=== PATIENT | female | born 1965 | race Caucasian/White ===

== ENCOUNTER 2017-11-04 13:22 | Emergency (ER) | payer BC, OTHER ==
[~2017-11-04] VITALS: Ht 157.5 cm; Wt 92.4 kg
[2017-11-04] MEDS ORDERED: IV NORMAL SALINE 1,000ML 1,000 ML IV SCH (13:45)
[2017-11-04 14:02] LABS: BASO # 0.1 x10^3/uL (0.0-0.2); BASO % 1 % (0-3); EOS # 0.2 x10^3/uL (0.0-0.7); EOS % 2 % (0-3); HEMATOCRIT 40.5 % (36.0-47.0); HEMOGLOBIN 13.7 g/dL (12.0-15.5); LYMPH # 2.8 x10^3/uL (1.0-4.8); LYMPH % 29 % (24-48); MEAN CORPUSCULAR HEMOGLOBIN 31 pg (25-35); MEAN CORPUSCULAR HGB CONC 34 g/dL (31-37); MEAN CORPUSCULAR VOLUME 93 fL (79-100); MONO # 0.7 x10^3/uL (0.0-1.1); MONO % 7 % (0-9); NEUT % 62 % (31-73); PLATELET COUNT 284 x10^3/uL (140-400); RED BLOOD COUNT 4.37 x10^6/uL (3.50-5.40); RED CELL DISTRIBUTION WIDTH 13.1 % (11.5-14.5); WHITE BLOOD COUNT 9.7 x10^3/uL (4.0-11.0)
--- NOTE | 2017-11-04 14:05 | EKG ---
[address] [address] Test Date: 2017-11-04 Test Time: 13:21:29 Pat Name: YOVANNY AHUJA Department: Room: Gender: F Director Government: [place] : 1965 Requested By: WAI JAY Order Number: [id number] Reading MD: Measurements Intervals [place] Rate: 82 P: 36 IL: 158 QRS: -10 QRSD: 82 T: 15 QT: 370 QTc: 435 Interpretive Statements SINUS RHYTHM LEFTWARD AXIS R-S TRANSITION ZONE IN V LEADS DISPLACED TO THE LEFT OTHERWISE NORMAL ECG RI6.01 No previous ECG available for comparison
[2017-11-04 14:18] LABS: ALBUMIN 3.8 g/dL (3.4-5.0); CALCIUM 9.5 mg/dL (8.5-10.1); CREATININE 1.1 mg/dL (0.6-1.0); DIRECT BILIRUBIN 0.1 mg/dL (0.0-0.2); POTASSIUM 4.1 mmol/L (3.5-5.1); TOTAL BILIRUBIN 0.3 mg/dL (0.2-1.0); TOTAL PROTEIN 7.5 g/dL (6.4-8.2)
--- NOTE | 2017-11-04 14:26 | RAD ---
CT HEAD WO CONTRAST dated 11/04/2017 2:04 PM Indication: Right arm numbness possible CVARight arm numbness. Pain when moving head. possible stroke/ right side weakness. Comparison: No comparison is available. Technique: Contiguous axial imaging the head was performed from skull base to vertex. No contrast administered. One or more of the following individualized dose reduction techniques were utilized for this examination: 1. Automated exposure control 2. Adjustment of the mA and/or kV according to patient size 3. Use of iterative reconstruction technique Findings: Ventricles and sulci are within normal limits for age. No midline shift or mass effect. Brain parenchyma is of normal attenuation. No hemorrhage or extra-axial collection. Posterior fossa and brainstem unremarkable. No hyperdense vessels are seen. Insular ribbons are symmetric. Visualized paranasal sinuses and mastoid air cells are clear. No apparent calvarial abnormality. IMPRESSION: 1. No evidence of acute intracranial hemorrhage or mass. 2. No CT evidence of acute CVA. If there is persistent clinical concern for evolving infarct, MRI could better evaluate Electronically signed by: Fermin Dahl MD (11/04/2017 2:23 PM) [facility]
[2017-11-04 14:49] LABS: AMPHETAMINE/METHAMPHETAMINE NEG (NEG); BARBITURATES NEG (NEG); BENZODIAZEPINES NEG (NEG); CANNABINOIDS NEG (NEG); COCAINE NEG (NEG); METHADONE NEG (NEG); OPIATES NEG (NEG); PHENCYCLIDINE NEG (NEG)
[2017-11-04 14:54] LABS: COLOR,URINE YELLOW
[2017-11-04 14:55] LABS: BILIRUBIN,URINE NEG (NEG); CLARITY,URINE CLEAR; GLUCOSE,URINE >=1000 mg/dL (NEG); NITRITE,URINE NEG (NEG); RBC,URINE 0 /HPF (0-2); UROBILINOGEN,URINE 0.2 mg/dL (0.2 mg/dL); WBC,URINE OCC /HPF (0-4)
[2017-11-04 14:56] LABS: BACTERIA,URINE FEW /HPF (0-FEW); HYALINE CASTS, URINE FEW /HPF; SQUAMOUS EPITHELIAL CELL,UR FEW /LPF
[2017-11-04] MEDS ORDERED: IOHEXOL 300 MG/ML 75 ML VIAL. IV ONE (15:00)
[2017-11-04] MEDS ORDERED: diphenhydrAMINE 50 MG/ML VIAL IVP ONE (15:15)
[2017-11-04] MEDS ORDERED: METOCLOPRAMIDE HCL 10 MG/2 ML VIAL. IV ONE (15:15)
--- NOTE | 2017-11-04 16:08 | RAD ---
CTA head and neck with contrast dated 11/04/2017. Comparison made to noncontrast head dated same day. CLINICAL INDICATION: Right arm numbness possible CVA. TECHNIQUE: Routine axial imaging the head and neck was performed following the intravenous administration of 100 cc Omnipaque 300. Study was performed as dedicated CTA with thin cut coronal and sagittal MIPS reconstructions. One or more of the following individualized dose reduction techniques were utilized for this examination: 1. Automated exposure control 2. Adjustment of the mA and/or kV according to patient size 3. Use of iterative reconstruction technique. Carotid Stenosis calculations for CT, MR, and conventional angiography are based upon measurements of the distal ICA diameter in accordance with the NASCET methodology. Stenosis calculations for carotid ultrasound studies are derived from validated velocity criteria which are known to correlate with the NASCET methodology. FINDINGS: Contrast bolus is adequate. Aortic arch is normal in caliber. Arch anatomy is standard. There is calcific plaque at the left subclavian artery origin, resulting in no significant stenosis. The bilateral subclavian arteries are otherwise patent. Vertebral arteries are not identified and likely congenitally absent or very hypoplastic. The bilateral common carotid artery origins are patent. Bilateral CCA are patent. There is mild calcific and soft plaque at the bilateral carotid bifurcations. Calcific and soft plaque on the left results in mild proximal ICA stenosis, estimated at about 40-50% narrowing. The left internal carotid artery is otherwise patent to the skull base. Mild calcific plaque at the right carotid bifurcation resulting in no significant proximal right ICA stenosis. 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 This vessel appears to be patent. The bilateral [employer] are patent. The distal right internal carotid artery is small but otherwise patent. Petrous and cavernous internal carotid arteries are not well evaluated due to venous contamination at the cavernous sinus. There is mild calcific plaque at the bilateral cavernous internal carotid arteries, without high-grade narrowing. Supraclinoid internal carotids and carotid termini are patent. Bilateral VALERIY and MCA branches are symmetric. No evidence of aneurysm. No apparent branch vessel occlusion, although the third and fourth order branches are poorly opacified and not well evaluated. Postcontrast imaging of the brain shows no abnormal enhancement. The dural venous sinuses are grossly patent. Paranasal sinuses are clear. No signal soft tissue abnormality. Limited images of the lung apices are clear. IMPRESSION: 1. Limited exam due to venous contamination. There is no evidence of hemodynamically significant stenosis or aneurysm. No apparent branch vessel occlusion. 2. 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 Please see above report for details. 3. Calcific plaque at the bilateral carotid bifurcation resulting in estimated 40-50% stenosis of the left ICA. No significant stenosis on the right. Electronically signed by: Fermin Dahl MD (11/04/2017 4:05 PM) [facility]
[2017-11-04] MEDS ORDERED: ASPIRIN 81 MG TAB.CHEW PO ONE (17:20)
--- NOTE | 2017-11-04 18:18 | PHYS DOC ---
Past History Past Medical History: Anxiety, Depression, Diabetes, Fibromyalgia, Hypertension Past Surgical History: Hysterectomy, Other Alcohol Use: Rarely Drug Use: None Adult General Chief Complaint Chief Complaint: NEURO SYMPTOMS/DEFICITS HPI HPI 52-year-old female presenting to the emergency department today with right arm/ shoulder pain and right upper extremity weakness and heaviness. This all started last night around 10:00 PM. She reports she was last known well at 10 PM. The pain in her shoulder was worse this morning she felt dizzy and was told she had high blood sugar so she came to the emergency department. Currently she has pain in the shoulder and right arm that is sharp along with a headache that is sharp the pain in her head is nonradiating and without alleviating factors. She feels generally weak and had mild double vision earlier but now denies double vision. Past medical history anxiety diabetes high blood pressure. Depression. Surgical history hysterectomy and cervical and thoracic spinal surgery. Social history current smoker Review of systems was positive for generalized weakness, right upper extremity weakness, history of slurred speech, history of diabetes, headache, diplopia. Negative for fevers chills chest pain or shortness of breath. All other review of systems is negative unless otherwise noted in history of present illness. ED course: 52-year-old female presenting the emergency department with focal weakness. Upon arrival the patient has mild drift in her right upper extremity. The remainder the neurologic exam is unremarkable. Head CT is unremarkable. Blood work obtained which shows hyperglycemia. CT angiogram of the head neck shows no obvious major vessel occlusion. I discussed the case with our neurologist Dr. Aguilera and [facility] neurologist Dr. hawkins who agrees with transfer to [facility] for MRI and neurology consultation. Aspirin administered in the emergency department. Patient was given metoclopramide and Benadryl for her headache. TPA was not administered because the patient's last known well was 15.5 hrs prior to arrival. Additionally the patient had an NIH stroke scale of 1 so I did not feel that the patient would benefit from TPA. Contraindicated. The patient was then transferred to [facility] for further evaluation treatment and care. Review of Systems Review of Systems SEE ABOVE. Current Medications Current Medications Current Medications Medications (Trade) Dose Ordered Sig/Angela Start Time Stop Time Status Last Admin Dose Admin Aspirin (Children'S Aspirin) 324 mg 1X ONCE 11/04/17 17:20 11/04/17 17:21 DC 11/04/17 17:23 324 MG Diphenhydramine HCl (Benadryl) 25 mg 1X ONCE 11/04/17 15:15 11/04/17 15:16 DC 11/04/17 15:33 25 MG Iohexol (Omnipaque 300 Mg/ml) 75 ml 1X ONCE 11/04/17 15:00 11/04/17 15:01 DC 11/04/17 15:10 75 ML Metoclopramide HCl (Reglan Vial) 10 mg 1X ONCE 11/04/17 15:15 11/04/17 15:16 DC 11/04/17 15:36 10 MG Sodium Chloride 1,000 ml @ 1,000 mls/hr Q1H 11/04/17 13:45 11/04/17 14:44 DC 11/04/17 14:34 1,000 MLS/HR Allergies Allergies Allergies Coded Allergies Type Severity Reaction Last Updated Verified Sulfa (Sulfonamide Antibiotics) Allergy Unknown 11/04/17 Yes amoxicillin Allergy Unknown 11/04/17 Yes cefuroxime Allergy Unknown 11/04/17 Yes clavulanic acid Allergy Unknown 11/04/17 Yes ketorolac Allergy Unknown 11/04/17 Yes milnacipran Allergy Unknown 11/04/17 Yes Physical Exam Physical Exam SEE ABOVE Constitutional: Well developed, well nourished, no acute distress, non-toxic appearance. HENT: Normocephalic, atraumatic, bilateral external ears normal, oropharynx moist, no oral exudates, nose normal. [] Eyes: PERRLA, EOMI, conjunctiva normal, no discharge. [] Neck: Normal range of motion, no tenderness, supple, no stridor. Cardiovascular:Heart rate regular rhythm, no murmur [] Lungs & Thorax: Bilateral breath sounds clear to auscultation Abdomen: Bowel sounds normal, soft, no tenderness, no masses, no pulsatile masses. [] Skin: Warm, dry, no erythema, no rash. [] Back: No tenderness, no CVA tenderness. Extremities: No tenderness, no cyanosis, no clubbing, ROM intact, no edema. [] Neurologic: Mental status: Awake oriented and alert x3 Cranial nerves: Extraocular movements intact, eyebrows maury bilaterally, smile symmetric, uvula elevation nl, shoulder shrug intact bilaterally, tongue protrusion normal DTRs: 2+ Sensation: equal and normal in all extremities Strength: 4 out of 5 strength in the right upper extremity with very mild drift. Left upper shoulder many 5 out of 5 strength. Bilateral lower extremities 5 out of 5 strength. Normal [id number] bilaterally. Normal finger to nose bilaterally. Psychologic: Affect normal, judgement normal, mood normal. [] Current Patient Data Vital Signs Vital Signs Date Time Temp Pulse Resp B/P (MAP) Pulse Ox O2 Delivery O2 Flow Rate FiO2 11/04/17 17:24 70 20 152/68 (96) 98 Room Air 11/04/17 13:25 97.9 Lab Results Laboratory Tests Test 11/04/17 13:48 11/04/17 14:28 White Blood Count 9.7 x10^3/uL (4.0-11.0) Red Blood Count 4.37 x10^6/uL (3.50-5.40) Hemoglobin 13.7 g/dL (12.0-15.5) Hematocrit 40.5 % (36.0-47.0) Mean Corpuscular Volume 93 fL (79-100) Mean Corpuscular Hemoglobin 31 pg (25-35) Mean Corpuscular Hemoglobin Concent 34 g/dL (31-37) Red Cell Distribution Width 13.1 % (11.5-14.5) Platelet Count 284 x10^3/uL (140-400) Neutrophils (%) (Auto) 62 % (31-73) Lymphocytes (%) (Auto) 29 % (24-48) Monocytes (%) (Auto) 7 % (0-9) Eosinophils (%) (Auto) 2 % (0-3) Basophils (%) (Auto) 1 % (0-3) Neutrophils # (Auto) 6.0 x10^3uL (1.8-7.7) Lymphocytes # (Auto) 2.8 x10^3/uL (1.0-4.8) Monocytes # (Auto) 0.7 x10^3/uL (0.0-1.1) Eosinophils # (Auto) 0.2 x10^3/uL (0.0-0.7) Basophils # (Auto) 0.1 x10^3/uL (0.0-0.2) Prothrombin Time 12.3 SEC (9.4-11.4) H Prothrombin Time INR 1.2 (0.9-1.1) H PTT 24 SEC (23-33) Sodium Level 138 mmol/L (136-145) Potassium Level 4.1 mmol/L (3.5-5.1) Chloride Level 101 mmol/L (98-107) Carbon Dioxide Level 25 mmol/L (21-32) Anion Gap 12 (6-14) Blood Urea Nitrogen 17 mg/dL (7-20) Creatinine 1.1 mg/dL (0.6-1.0) H Estimated GFR (Cockcroft-Gault) 52.0 Glucose Level 371 mg/dL (70-99) H Calcium Level 9.5 mg/dL (8.5-10.1) Total Bilirubin 0.3 mg/dL (0.2-1.0) Direct Bilirubin 0.1 mg/dL (0.0-0.2) Aspartate Amino Transferase (AST) 14 U/L (15-37) L Alanine Aminotransferase (ALT) 30 U/L (14-59) Alkaline Phosphatase 113 U/L (46-116) Troponin I Quantitative < 0.017 ng/mL (0-0.055) Total Protein 7.5 g/dL (6.4-8.2) Albumin 3.8 g/dL (3.4-5.0) Lipase 138 U/L (73-393) Urine Collection Type Void Urine Color Yellow Urine Clarity Clear Urine pH 6.0 Urine Specific [place] 1.020 Urine Protein Neg (NEG-TRACE) Urine Glucose (UA) >=1000 mg/dL (NEG) Urine Ketones (Stick) Trace mg/dL (NEG) Urine Blood Neg (NEG) Urine Nitrite Neg (NEG) Urine Bilirubin Neg (NEG) Urine Urobilinogen Dipstick 0.2 mg/dL (0.2 mg/dL) Urine Leukocyte Esterase Neg (NEG) Urine RBC 0 /HPF (0-2) Urine WBC Occ /HPF (0-4) Urine Squamous Epithelial Cells Few /LPF Urine Bacteria Few /HPF (0-FEW) Urine Hyaline Casts Few /HPF Urine Opiates Screen Neg (NEG) Urine Methadone Screen Neg (NEG) Urine Barbiturates Neg (NEG) Urine Phencyclidine Screen Neg (NEG) Urine Amphetamine/Methamphetamine Neg (NEG) Urine Benzodiazepines Screen Neg (NEG) Urine Cocaine Screen Neg (NEG) Urine Cannabinoids Screen Neg (NEG) Urine Ethyl Alcohol Neg (NEG) EKG EKG EKG shows sinus rhythm with a regular rate. ST segments are congruent. Not suggestive of ACS. Mild T-wave flattening in aVF with a single T-wave inversion in lead 3 which is nonspecific.[] Radiology/Procedures Radiology/Procedures [] Course & Med Decision Making Course & Med Decision Making Pertinent Labs and Imaging studies reviewed. (See chart for details) [] Dragon Disclaimer Dragon Disclaimer This electronic medical record was generated, in whole or in part, using a voice recognition dictation system. Departure Departure: Impression: Primary Impression: Focal neurological deficit Additional Impressions: Hyperglycemia Headache Disposition: 02 XFER SHT-TRM HOSP ([facility]) Condition: STABLE Referrals: PCP,UNKNOWN (PCP) Problem Qualifiers WAI JAY MD Nov 04, 2017 18:17
[2017-11-04] MEDS ORDERED: HYDROcodone/APAP 7.5/325MG 1 TAB TABLET PO ONE (21:00)
[2017-11-04 21:15] VITALS: BP 159/85
== END 2017-11-04 21:15 | disposition short-term general hospital (02) ==
LOC: ER 13:22
DX: R29.818 Other symptoms and signs involving the nervous system (principal); E11.65 Type 2 diabetes mellitus with hyperglycemia; R51 Headache; F41.9 Anxiety disorder, unspecified; F32.9 Major depressive disorder, single episode, unspecified; I10 Essential (primary) hypertension; M79.7 Fibromyalgia; Z88.2 Allergy status to sulfonamides; Z88.1 Allergy status to other antibiotic agents; Z88.8 Allergy status to other drugs, medicaments and biological substances
CPT/HCPCS: 36415; 70450; 70496; 70498; 80048; 80076; 80307; 81001; 83690; 84484; 85025; 85610; 85730; 93005; 96361; 96374; 96375; 99285; J1200; J2765; Q9967; G0479; J7030

== ENCOUNTER → 2019-05-14 | Outpatient (CLI) | payer BC ==
--- NOTE | 2019-05-14 17:06 | RAD ---
EXAM: Lumbar spine, 5 views. HISTORY: Radiculopathy. COMPARISON: None. FINDINGS: 5 views of the lumbar spine are obtained. There is grade 1 anterolisthesis of L4 and L5, measuring 2 mm. There is degenerative endplate remodeling at multiple levels. There are multiple endplate Schmorl's nodes. There is disc space narrowing predominantly at L5-S1. There is facet arthropathy predominantly at L5-S1. IMPRESSION: 1. Multilevel degenerative change, predominantly at L5-S1. 2. Minimal grade 1 anterolisthesis of L4 on L5. Electronically signed by: Tamiko Hubbard MD (05/14/2019 5:03 PM) [id number]
== END | disposition home or self-care (01) ==
LOC: DXRAD 15:59
PROVIDERS: ATTEND Physician Assistant Medical
DX: M47.26 Other spondylosis with radiculopathy, lumbar region (principal); M47.818 Spondylosis without myelopathy or radiculopathy, sacral and sacrococcygeal region; M43.16 Spondylolisthesis, lumbar region; M48.07 Spinal stenosis, lumbosacral region; M46.87 Other specified inflammatory spondylopathies, lumbosacral region
CPT/HCPCS: 72110

== ENCOUNTER → 2019-06-03 | Outpatient (CLI) | payer BC ==
[2019-06-03 09:03] LABS: BASO # 0.1 x10^3/uL (0.0-0.2); BASO % 1 % (0-3); EOS # 0.1 x10^3/uL (0.0-0.7); EOS % 1 % (0-3); HEMATOCRIT 42.9 % (36.0-47.0); HEMOGLOBIN 14.2 g/dL (12.0-15.5); LYMPH % 22 % (24-48); MEAN CORPUSCULAR HEMOGLOBIN 32 pg (25-35); MEAN CORPUSCULAR HGB CONC 33 g/dL (31-37); MEAN CORPUSCULAR VOLUME 96 fL (79-100); MONO # 0.6 x10^3/uL (0.0-1.1); MONO % 7 % (0-9); NEUT # 6.5 x10^3uL (1.8-7.7); NEUT % 69 % (31-73); PLATELET COUNT 343 x10^3/uL (140-400); RED BLOOD COUNT 4.45 x10^6/uL (3.50-5.40); RED CELL DISTRIBUTION WIDTH 12.6 % (11.5-14.5); WHITE BLOOD COUNT 9.4 x10^3/uL (4.0-11.0)
[2019-06-03 09:20] LABS: ALBUMIN 3.8 g/dL (3.4-5.0); CALCIUM 9.1 mg/dL (8.5-10.1); CREATININE 0.9 mg/dL (0.6-1.0); POTASSIUM 4.6 mmol/L (3.5-5.1); TOTAL BILIRUBIN 0.3 mg/dL (0.2-1.0); TOTAL PROTEIN 7.7 g/dL (6.4-8.2)
[2019-06-03 23:07] LABS: HEMOGLOBIN A1C 7.3 % (4.8-5.6)
== END | disposition home or self-care (01) ==
LOC: LAB 08:11
PROVIDERS: ATTEND Physician Assistant Medical
DX: E11.9 Type 2 diabetes mellitus without complications (principal)
CPT/HCPCS: 36415; 80053; 83036; 85025

== ENCOUNTER 2020-02-21 15:46 | Emergency (ER) | payer BC ==
[~2020-02-21] VITALS: Ht 157.5 cm; Wt 89.0 kg
[2020-02-21 16:12] VITALS: BP 97/61
[2020-02-21 16:49] LABS: BASO # 0.2 x10^3/uL (0.0-0.2); BASO % 1 % (0-3); EOS # 0.5 x10^3/uL (0.0-0.7); EOS % 4 % (0-3); HEMOGLOBIN 12.3 g/dL (12.0-15.5); LYMPH # 2.4 x10^3/uL (1.0-4.8); LYMPH % 20 % (24-48); MEAN CORPUSCULAR HEMOGLOBIN 32 pg (25-35); MEAN CORPUSCULAR HGB CONC 33 g/dL (31-37); MEAN CORPUSCULAR VOLUME 97 fL (79-100); MONO % 8 % (0-9); NEUT # 8.2 x10^3uL (1.8-7.7); NEUT % 66 % (31-73); PLATELET COUNT 268 x10^3/uL (140-400); RED BLOOD COUNT 3.83 x10^6/uL (3.50-5.40); RED CELL DISTRIBUTION WIDTH 12.5 % (11.5-14.5); WHITE BLOOD COUNT 12.4 x10^3/uL (4.0-11.0)
--- NOTE | 2020-02-21 16:55 | PHYS DOC ---
Past History Past Medical History: Diabetes Past Surgical History: Other Additional Past Surgical Histo: labrum Alcohol Use: Rarely Drug Use: None General Adult EDM: Chief Complaint: POST-OP PROBLEM HPI: HPI: 34-year-old female presents to the emergency department for bleeding from the incision site of a recent left knee surgery. Surgery was done to remove an abscess. Patient had gotten up to go to the bathroom when she had realized that there was blood running down her leg from the incision site. She tried to stop the bleeding herself and could not. With assistance of family member she was able to apply pressure to wound, apply a bandage, and to stop bleeding and nothing to be able to come to the emergency department. She stated that wound was bleeding in a pulsatile manner. She called her surgeon but has not received a answer from. On arrival to to the emergency department she did not know bleeding was completely stopped. Patient states that she feels sleepy from pain medication but does not feel lethargic or lightheaded. She is not in significant pain currently. Review of Systems: Review of Systems: Constitutional: Denies fever or chills Eyes: Denies redness or eye pain HENT: Denies nasal congestion or sore throat Respiratory: Denies cough or shortness of breath Cardiovascular: Denies chest pain or palpitations GI: Denies abdominal pain, nausea, or vomiting : Denies dysuria or hematuria Musculoskeletal: Denies back pain or joint pain Integument: Circumcision is intact and not erythematous Neurologic: Denies headache, focal weakness or sensory changes Complete systems were reviewed and found to be within normal limits, except as documented in this note. Allergies: Allergies: Allergies Coded Allergies Type Severity Reaction Last Updated Verified Sulfa (Sulfonamide Antibiotics) Allergy Unknown 11/04/17 Yes amoxicillin Allergy Unknown 11/04/17 Yes cefuroxime Allergy Unknown 11/04/17 Yes clavulanic acid Allergy Unknown 11/04/17 Yes ketorolac Allergy Unknown 11/04/17 Yes milnacipran Allergy Unknown 11/04/17 Yes Physical Exam: PE: Constitutional: Well developed, well nourished, no acute distress, non-toxic appearance Eyes: PERRL, EOMI, conjunctiva normal, no discharge Neck: Normal range of motion, no tenderness, supple Lungs & Thorax: in no respiratory distress. chest rise and fall is equal b/l Abdomen: Soft, no tenderness Skin: Warm, dry, no erythema, no rash. Incision is intact and not bleeding. Back: No tenderness, no CVA tenderness Extremities: No tenderness, ROM intact, no edema. Left lower extremity properly bandaged postsurgery Neurologic: Alert and oriented X 3, normal motor function, normal sensory function, no focal deficits noted Psychologic: Affect normal, judgment normal Current Patient Data: Vital Signs: Vital Signs Date Time Temp Pulse Resp B/P (MAP) Pulse Ox O2 Delivery O2 Flow Rate FiO2 02/21/20 16:12 98.7 14 97/61 (73) 96 Room Air EKG: EKG: [] Radiology/Procedures: Radiology/Procedures: [] Course & Med Decision Making: Course & Med Decision Making We examined the patient's incision site of the surgery. It was properly wrapped with Vaseline gauze in place. Incision site was not bleeding and did not appear infected. Labs show that patient was not anemic and vital signs show that she was not hypotensive blood loss. Patient needs to follow-up with surge on and return to ED or PCP if bleeding gets worse or begins again. We have instructed patient to continue to follow instructions of the surgeon for post surgery recovery. In the ED patient's pain was appropriately controlled. Dragon Disclaimer: Dragon Disclaimer: This electronic medical record was generated, in whole or in part, using a voice recognition dictation system. Departure Departure: Impression: Primary Impression: Post-op bleeding Qualified Codes: M96.830 - Postprocedural hemorrhage of a musculoskeletal structure following a musculoskeletal system procedure Disposition: HOME/RESIDENCE PRIOR TO ADM Condition: STABLE Referrals: ELVIRA GUEVARA (PCP) Patient Instructions: Postsurgical Bleeding Justification of Admission: Justification of Admission: Justification of Admission Dx: N/A STEPHANIE MOSS DO Feb 21, 2020 16:55
== END 2020-02-21 17:43 | disposition home or self-care (01) ==
LOC: ER 15:46
DX: M96.830 Postprocedural hemorrhage of a musculoskeletal structure following a musculoskeletal system procedure (principal); E11.9 Type 2 diabetes mellitus without complications; Z88.2 Allergy status to sulfonamides; Z88.1 Allergy status to other antibiotic agents; Z88.8 Allergy status to other drugs, medicaments and biological substances
CPT/HCPCS: 36415; 85025; 99284

== ENCOUNTER 2020-06-29 03:42 | Emergency (ER) | payer SELFPAY ==
[~2020-06-29] VITALS: Ht 157.5 cm; Wt 90.5 kg
--- NOTE | 2020-06-29 03:48 | PHYS DOC ---
Past History Past Medical History: Diabetes Past Surgical History: Cholecystectomy, , Hysterectomy, Other Additional Past Surgical Histo: labrum, left knee Alcohol Use: Rarely Drug Use: None General Adult HPI: HPI: ".. I having pain.. really bad stabbing pain on the Rt... flank ..it comes around to my front.. only thing I go left down there is my appendix .. everything is gone.. my colon scope showed no problems.. this pain started about ten.... and has not let up..." Patient is a 55 year old female who presents with above hx and complaints right flank pain. Onset started tonight. No history of bad food intake. No history of trauma. No history immunosuppression. Has had multiple surgeries in the past. Cholecystectomy, oophorectomy, hysterectomy, bladder lift, and laparoscopic evaluations. Patient states she still has her appendix. Patient denies previous history of kidney stones. No recent travel. No specific ill contacts. No Covid risk. Patient reportedly her last colon scope showed no abnormalities. Review of Systems: Review of Systems: Constitutional: Denies fever or chills Eyes: Denies change in visual acuity HENT: Denies nasal congestion or sore throat Respiratory: Denies cough or shortness of breath Cardiovascular: Denies chest pain or edema GI: Complains of right flank abdominal pain, nausea,. Denies vomiting, bloody stools or diarrhea : Denies dysuria Musculoskeletal: Complains of right flank back pain Integument: Denies rash Neurologic: Denies headache, focal weakness or sensory changes Endocrine: Denies polyuria or polydipsia Lymphatic: Denies swollen glands Psychiatric: Denies depression or anxiety Family History: Family History: Noncontributory to presentation Current Medications: Current Meds: See nursing for home meds Allergies: Allergies: Allergies Coded Allergies Type Severity Reaction Last Updated Verified Sulfa (Sulfonamide Antibiotics) Allergy Unknown 02/21/20 Yes amoxicillin Allergy Unknown 02/21/20 Yes cefuroxime Allergy Unknown 02/21/20 Yes clavulanic acid Allergy Unknown 02/21/20 Yes ketorolac Allergy Unknown 02/21/20 Yes milnacipran Allergy Unknown 02/21/20 Yes Physical Exam: PE: Constitutional: In moderate acute distress, non-toxic appearance. [] HENT: Normocephalic, atraumatic, bilateral external ears normal, oropharynx moist, no oral exudates, nose normal. [] Eyes: PERRLA, EOMI, conjunctiva normal, no discharge. [] Neck: Normal range of motion, no tenderness, supple, no stridor. [] Cardiovascular:Heart rate regular rhythm, no murmur [] Lungs & Thorax: Bilateral breath sounds equal apex with scattered wheezes auscultation [] Abdomen: Bowel sounds decreased, soft, right flank tenderness, no masses, mild distention no pulsatile masses. Multiple surgery scars. Rebound to right lower quadrant. Skin: Warm, dry, no erythema, no rash. [] Back: No tenderness, right CVA tenderness. [] Extremities: No tenderness, no cyanosis, no clubbing, ROM intact, no edema. No psoas sign. Previous knee surgery scar left Neurologic: Alert and oriented X 3, normal motor function, normal sensory function, no focal deficits noted. [] Psychologic: Affect anxious, judgement normal, mood normal. [] EKG: EKG: [] Radiology/Procedures: Radiology/Procedures: [][place] [address] IMAGING REPORT Signed PATIENT: YOVANNY AHUJA GACCOUNT: [id number] : 1965 LOCATION: ER AGE: 55 SEX: F EXAM STATUS: REG ER ORD. PHYSICIAN: WENDY LUGO MD REASON: Severe right flank pain, nausea PROCEDURE: CT ABDOMEN PELVIS WO CONTRAST INDICATION: Reason: Severe right flank pain, nausea / Spl. Instructions: / History: . COMPARISON: None. TECHNIQUE: Axial CT images obtained through the abdomen and pelvis without contrast. One or more of the following individualized dose reduction techniques were utilized for this examination: 1. Automated exposure control; 2. Adjustment of the mA and/or kV according to patient size; 3. Use of iterative reconstruction technique. FINDINGS: Scattered calcific atherosclerosis. Liver is mildly low density which can be seen with fatty infiltration. Postcholecystectomy changes. No peripancreatic fluid collection. Spleen is unremarkable. No left-sided hydronephrosis. Urinary bladder is partially distended. No right-sided hydronephrosis. Fat-containing lesion of the right kidney measuring approximately 6 mm which could be from small angiomyolipoma. 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 Urinary bladder partially distended. No periappendiceal inflammatory changes. No dilated loops of bowel to suggest obstruction. Degenerative changes the spine with multilevel central canal and neural foraminal stenosis. IMPRESSION: * No hydronephrosis. * no evidence of appendicitis. * Liver is low density which can be seen with fatty infiltration. Electronically signed by: Liza Foster MD (06/29/2020 5:31 AM) DESKTOP- [id number] DICTATED AND SIGNED BY: LIZA FOSTER MD DATE: 06/29/20 0522 CC: WENDY LUGO MD; ELVIRA GUEVARA ~MTH0 0 Heart Score: Risk Factors: Risk Factors: DM, Current or recent (<one month) smoker, HTN, HLP, family history of CAD, obesity. Risk Scores: Score 0 - 3: 2.5% MACE over next 6 weeks - Discharge Home Score 4 - 6: 20.3% MACE over next 6 weeks - Admit for Clinical Observation Score 7 - 10: 72.7% MACE over next 6 weeks - Early Invasive Strategies Course & Med Decision Making: Course & Med Decision Making Pertinent Labs and Imaging studies reviewed. (See chart for details) Patient stay on a clear fluid diet only for the next 48 hours. No solids. No milk products. Must allow bowel rest push fluids. Must have reexam if continued pain. Take tylenol and ibuprofen for pain. Vicoprofen marked pain. Your appendix area showed no inflammation. Impression: 1. Renal [id number] 2. Duplication of right renal collecting system ( No findings of hydronephrosis on CT tonight) 3. Mild leukocytosis 15 4. Constipation [] Dragon Disclaimer: Dragon Disclaimer: This electronic medical record was generated, in whole or in part, using a voice recognition dictation system. Departure Departure: Referrals: ELVIRA GUEVARA (PCP) Scripts Ondansetron Hcl (ZOFRAN) 4 Mg Tablet 8 MG PO QIDPRN PRN for nv, #30 TAB Prov: WENDY LUGO MD 06/29/20 Hydrocodone/Ibuprofen (HYDROCODONE-IBUPROFEN 7.5-200 ) 1 Each Tablet 1 TAB PO PRN Q6HRS PRN for PAIN, #30 TAB 0 Refills Prov: WENDY LUGO MD 06/29/20 Ankit Disclaimer This chart was dictated in whole or in part using Voice Recognition software in a busy, high-work load, and often noisy Emergency Department environment. It may contain unintended and wholly unrecognized errors or omissions. WENDY LUGO MD Jun 29, 2020 03:48
[2020-06-29 03:59] VITALS: BP 182/75
[2020-06-29 04:58] LABS: BASO # 0.1 x10^3/uL (0.0-0.2); BASO % 1 % (0-3); EOS # 0.1 x10^3/uL (0.0-0.7); EOS % 1 % (0-3); HEMATOCRIT 43.7 % (36.0-47.0); HEMOGLOBIN 14.4 g/dL (12.0-15.5); LYMPH % 13 % (24-48); MEAN CORPUSCULAR HEMOGLOBIN 32 pg (25-35); MEAN CORPUSCULAR HGB CONC 33 g/dL (31-37); MEAN CORPUSCULAR VOLUME 96 fL (79-100); MONO # 0.9 x10^3/uL (0.0-1.1); MONO % 6 % (0-9); NEUT # 11.9 x10^3uL (1.8-7.7); NEUT % 79 % (31-73); PLATELET COUNT 300 x10^3/uL (140-400); RED BLOOD COUNT 4.56 x10^6/uL (3.50-5.40); RED CELL DISTRIBUTION WIDTH 13.1 % (11.5-14.5)
[2020-06-29] MEDS ORDERED: ONDANSETRON PF 4 MG/2 ML VIAL. IVP ONE (05:00)
[2020-06-29] MEDS ORDERED: FAMOTIDINE 20 MG/2 ML VIAL IVP ONE (05:00)
[2020-06-29] MEDS ORDERED: IV RINGERS SOLUTION,LACTATED 1,000 ML IV SCH (05:00)
[2020-06-29] MEDS ORDERED: MORPHINE SULFATE 10 MG/ML SYRINGE. SQ ONE ×2 (05:00→06:15)
[2020-06-29 05:17] LABS: BACTERIA,URINE 0 /HPF (0-FEW); BILIRUBIN,URINE NEG (NEG); CLARITY,URINE CLEAR; COLOR,URINE YELLOW; GLUCOSE,URINE 100 mg/dL (NEG); NITRITE,URINE NEG (NEG); RBC,URINE 0 /HPF (0-2); SQUAMOUS EPITHELIAL CELL,UR MANY /LPF; UROBILINOGEN,URINE 0.2 mg/dL (0.2 mg/dL); WBC,URINE 0 /HPF (0-4)
[2020-06-29 05:25] LABS: GFR 57.4; POTASSIUM 4.2 mmol/L (3.5-5.1)
[2020-06-29 05:29] LABS: DIRECT BILIRUBIN 0.1 mg/dL (0.0-0.2); TOTAL BILIRUBIN 0.4 mg/dL (0.2-1.0)
--- NOTE | 2020-06-29 05:34 | RAD ---
INDICATION: Reason: Severe right flank pain, nausea / Spl. Instructions: / History: . COMPARISON: None. TECHNIQUE: Axial CT images obtained through the abdomen and pelvis without contrast. One or more of the following individualized dose reduction techniques were utilized for this examinat ion: 1. Automated exposure control; 2. Adjustment of the mA and/or kV according to patient size; 3 . Use of iterative reconstruction technique. FINDINGS: Scattered calcific atherosclerosis. Liver is mildly low density which can be seen with fatty infiltration. Postcholecystectomy changes. No peripancreatic fluid collection. Spleen is unremarkable. No left-sided hydronephrosis. Urinary bladder is partially distended. No right-sided hydronephrosis. Fat-containing lesion of the right kidney measuring approximately 6 mm which could be from small luiza omyolipoma. Duplication of the right renal collecting system and proximal ureter without hydronephros is. Urinary bladder partially distended. No periappendiceal inflammatory changes. No dilated loops of bowel to suggest obstruction. Degenerative changes the spine with multilevel central canal and neural foraminal stenosis. IMPRESSION: * No hydronephrosis. * no evidence of appendicitis. * Liver is low density which can be seen with fatty infiltration. Electronically signed by: Douglas Negrete MD (06/29/2020 5:31 AM) [id number]
--- NOTE | 2020-06-29 05:36 | RAD ---
INDICATION: Reason: Severe right flank pain, nausea / Spl. Instructions: / History: COMPARISON: None. IMPRESSION: 3 views of the chest and abdomen obtained. No focal airspace consolidation. Cardiac silhouette is unr emarkable. Air scattered throughout the large and small bowel in a nonspecific but not obstructive pa ttern. Calcifications in the pelvis can be seen with phleboliths. Electronically signed by: Douglas Negrete MD (06/29/2020 5:33 AM) [id number]
[2020-06-29] MEDS ORDERED: ONDA4TAB7 PO (05:49)
[2020-06-29] MEDS ORDERED: HYDR-1179 PO (05:49)
[2020-06-29] MEDS ORDERED: MAGNESIUM HYDROXIDE 2,400 MG/30 ML ORAL.SUSP. PO ONE (06:00)
== END 2020-06-29 06:10 | disposition home or self-care (01) ==
LOC: ER 03:42
DX: N23 Unspecified renal colic (principal); Q63.0 Accessory kidney; K59.00 Constipation, unspecified; D72.829 Elevated white blood cell count, unspecified; E11.9 Type 2 diabetes mellitus without complications; Z90.49 Acquired absence of other specified parts of digestive tract; Z98.890 Other specified postprocedural states; Z90.710 Acquired absence of both cervix and uterus; Z88.2 Allergy status to sulfonamides; Z88.1 Allergy status to other antibiotic agents; Z88.4 Allergy status to anesthetic agent; Z88.8 Allergy status to other drugs, medicaments and biological substances
CPT/HCPCS: 36415; 74022; 74176; 80048; 80076; 81001; 82550; 83690; 85025; 85610; 85730; 96361; 96372; 96374; 96375; 99285; J2270; J2405; J3490; J7120